=== PATIENT | female | born 1990 | race Caucasian/White ===

== ENCOUNTER 2016-04-26 12:16 | Emergency (ER) | payer MEDICAID ==
[~2016-04-26] VITALS: Ht 157.5 cm; Wt 67.3 kg
[~2016-04-26 12:16] MED LIST: OLAN5TAB2 PO; SERT50TA12 PO; TRAZ-147 PO
[2016-04-26] MEDS ORDERED: SERT50TA12 PO (12:47)
[2016-04-26] MEDS ORDERED: HydrOXYzine HCL 25 MG TABLET PO ONE ×2 (13:00→15:15)
[2016-04-26 15:18] VITALS: BP 113/68
== END 2016-04-26 15:41 | disposition home or self-care (01) ==
LOC: EMS 12:17
DX: G25.9 Extrapyramidal and movement disorder, unspecified (principal); Z88.5 Allergy status to narcotic agent; Z88.8 Allergy status to other drugs, medicaments and biological substances
CPT/HCPCS: 99283

== ENCOUNTER 2019-04-03 09:29 | Emergency (ER) | payer MEDICAID ==
[~2019-04-03] VITALS: Ht 162.6 cm; Wt 61.4 kg
[~2019-04-03 09:29] MED LIST changes: -TRAZ-147 PO; +TRAZ-257 PO
[2019-04-03] MEDS ORDERED: ONDANSETRON HCL 4 MG TABLET PO ONE (11:30)
[2019-04-03 12:55] VITALS: BP 105/66
== END 2019-04-03 12:54 | disposition home or self-care (01) ==
LOC: EMS 09:34
DX: A08.4 Viral intestinal infection, unspecified (principal); R11.10 Vomiting, unspecified; F31.9 Bipolar disorder, unspecified; F20.9 Schizophrenia, unspecified; Z88.8 Allergy status to other drugs, medicaments and biological substances; Z88.6 Allergy status to analgesic agent
CPT/HCPCS: 99283; Q0162

== ENCOUNTER 2019-07-22 17:45 | Emergency (ER) | payer MEDICAID ==
[~2019-07-22] VITALS: Ht 162.6 cm; Wt 90.9 kg
[2019-07-22 17:47] VITALS: BP 125/70
== END 2019-07-22 19:04 | disposition home or self-care (01) ==
LOC: EMS 17:45
DX: S92.421A Displaced fracture of distal phalanx of right great toe, initial encounter for closed fracture (principal); Z88.8 Allergy status to other drugs, medicaments and biological substances; W01.0XXA Fall on same level from slipping, tripping and stumbling without subsequent striking against object, initial encounter; Y93.89 Activity, other specified; Y92.89 Other specified places as the place of occurrence of the external cause; Y99.8 Other external cause status

== ENCOUNTER 2020-06-09 18:59 | Emergency (ER) | payer MEDICAID ==
[~2020-06-09] VITALS: Ht 160 cm; Wt 70.5 kg
[2020-06-09 20:05] LABS: COVID AG,FIA SOURCE NASOPHARYNGEAL
[2020-06-09 20:59] VITALS: BP 111/62
== END 2020-06-09 21:03 | disposition home or self-care (01) ==
LOC: EMS 19:11
DX: J02.9 Acute pharyngitis, unspecified (principal); Z20.822 Contact with and (suspected) exposure to COVID-19; Z88.8 Allergy status to other drugs, medicaments and biological substances
CPT/HCPCS: 87426; 99283